=== PATIENT | male | born 1965 | race Caucasian/White ===

== ENCOUNTER 2023-10-23 07:47 | Outpatient (CLI) | payer BC ==
[2023-10-23] MEDS ORDERED: Iopamidol 370 76% 100 ML VIAL ONE (10:09)
== END 2023-10-23 07:48 | disposition home or self-care (01) ==
LOC: CT 07:47
PROVIDERS: ATTEND Surgery
DX: R59.0 Localized enlarged lymph nodes (principal)
CPT/HCPCS: 70491